=== PATIENT | female | born 1945 | race Two or more races ===

== ENCOUNTER 2020-10-17 22:07 | Emergency (ER) | payer MEDICARE, OTHER ==
[~2020-10-17] VITALS: Ht 167.6 cm; Wt 61.7 kg
[2020-10-18] MEDS ORDERED: OLANZapine 5 MG TAB PO ONE (08:30)
[2020-10-18] MEDS ORDERED: LORazepam 0.5 MG TAB PO ONE (17:15)
[2020-10-19 12:00] VITALS: BP 122/64
== END 2020-10-19 15:11 | disposition home or self-care (01) ==
LOC: ER 22:10
DX: G30.9 Alzheimer's disease, unspecified (principal); F02.80 Dementia in other diseases classified elsewhere, unspecified severity, without behavioral disturbance, psychotic disturbance, mood disturbance, and anxiety; R41.82 Altered mental status, unspecified; Z59.1 Inadequate housing